=== PATIENT | male | born 1975 | race Caucasian/White ===

== ENCOUNTER 2017-09-26 07:39 | Emergency (ER) | payer OTHER, BC ==
[2017-09-26 07:44] VITALS: BMI 34.2
--- NOTE | 2017-09-26 08:12 | PDOC ---
History of Present Illness - General Chief Complaint: Injury Stated Complaint: INJURY Time Seen by Provider: 09/26/17 08:10 - History of Present Illness Initial Comments: 09/26/17 08:27 42 yo M with no significant pmh who presents with distal left 4th finger amputation. Patient reports increased bleeding from left distal 4th digit following injury. 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 Shortly after patient had finger reattached at [facility] by unknown surgeon. Patient states that procedure lasted 4 hours and ended at 2:30 PM. Patient reports nail bed avulsion and 16 sutures applied. Finger was dressed and splinted at [facility]. Denies fevers/chills, N/V, chest pain SOB, night sweats, weakness. Patient given clindamycin and on Ibuprofen for pain control. Smokes 1 ppd for 20 + years. Past History - Past Medical History Allergies/Adverse Reactions: Allergies Allergy/AdvReac Type Severity Reaction Status Date / Time No Known Allergies Allergy Verified 09/26/17 07:44 Home Medications: Ambulatory Orders Hydrocodone/Acetaminophen [Vicodin 5-300 mg Tablet] 1 - 2 tab PO TID PRN #50 tablet MDD 6 03/26/16 Oxycodone HCl/Acetaminophen [Percocet 5-325 mg Tablet] 1 tab PO Q6H #20 tablet MDD 3 tab 09/26/17 Anemia: No Asthma: No Cancer: No Cardiac Disorders: No CVA: No COPD: No CHF: No Dementia: No Diabetes: No GI Disorders: No Disorders: No HTN: No Hypercholesterolemia: No Liver Disease: No Seizures: No Thyroid Disease: No - Suicide/Smoking/Psychosocial Hx Smoking Status: Yes Smoking History: Current every day smoker Number of Cigarettes Smoked Daily: 20 Cigars Per Day: 5 Information on smoking cessation initiated: Yes 'Breaking Loose' booklet given: 09/26/17 Hx Alcohol Use: No Drug/Substance Use Hx: No Substance Use Type: None Review of Systems - Review of Systems Comments:: 09/26/17 08:12 GENERAL/CONSTITUTIONAL: No fever or chills. No weakness. HEAD, EYES, EARS, NOSE AND THROAT: No change in vision. No ear pain or discharge. No sore throat.- CARDIOVASCULAR: No chest pain or shortness of breath RESPIRATORY: No cough, wheezing, or hemoptysis. GASTROINTESTINAL: No nausea, vomiting, diarrhea or constipation. GENITOURINARY: No dysuria, frequency, or change in urination. MUSCULOSKELETAL: + Left 4th digit injury. No joint or muscle swelling or pain. No neck or back pain. SKIN: No rash NEUROLOGIC: No headache, vertigo, loss of consciousness, or change in strength/ sensation. ENDOCRINE: No increased thirst. No abnormal weight change HEMATOLOGIC/LYMPHATIC: No anemia, easy bleeding, or history of blood clots. ALLERGIC/IMMUNOLOGIC: No hives or skin allergy. *Physical Exam - Vital Signs Last Vital Signs Temp Pulse Resp BP Pulse Ox 97.6 F 112 H 20 138/76 97 09/26/17 07:40 09/26/17 07:40 09/26/17 07:40 09/26/17 07:40 09/26/17 07:40 - Physical Exam Comments: 09/26/17 08:12 GENERAL: Awake, alert, and fully oriented, in no acute distress HEAD: No signs of trauma, normocephalic, atraumatic EYES: PERRLA, EOMI, sclera anicteric, conjunctiva clear ENT: Hearing grossly normal, nares patent, oropharynx clear without exudates. Moist mucosa NECK: Normal ROM, supple, no lymphadenopathy, JVD, or masses LUNGS: No distress, speaks full sentences, clear to auscultation bilaterally HEART: Regular rate and rhythm, normal S1 and S2, no murmurs, rubs or gallops, peripheral pulses normal and equal bilaterally. EXTREMITIES : Normal inspection, Normal range of motion, no edema. No clubbing or cyanosis. Left Hand: + Flexion and extension of left 4 th digit at PCP, and MCP. [address] at DIP of 4th digit. Intact pain and temperature to finger below suture line. No active signs of bleeding or foreign body. Nail avulsed. Absent signs of oozing, pus, discharge. surgery site is c/d/i. SKIN: Warm, Dry, normal turgor, no rashes or lesions noted. ED Treatment Course - LABORATORY CBC & Chemistry Diagram: 09/26/17 09:30 09/26/17 09:30 Medical Decision Making - Medical Decision Making 09/26/17 08:54 42 yo M with h/o R scaphoid fracture who presents with distal left 4th finger amputation. Patient reports increased bleeding from left distal 4th digit following injury. 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 Shortly after patient had finger reattached at [facility] by unknown surgeon. Patient states that procedure lasted 4 hours and ended at 2:30 PM. Patient reports nail bed avulsion and 16 sutures applied. Finger was dressed and splinted at [facility]. Denies fevers/chills, N/V, chest pain SOB, night sweats, weakness. Patient given Keflex and on Ibuprofen for pain control. Left Hand: + Flexion and extension of left 4 th digit at PCP, and MCP. [address] at DIP of 4th digit. Intact pain and temperature to finger below suture line. Low suspicion of underlying soft tissue infection with absent signs of overlying cellulitis, gangrene, arterial insufficiency, or compartment syndrome. ED Course: Hand Left RAD Consulted Dr. Weiner Hand plastic surgeon director of diversity and inclusion. Tylenol 1000 mg, Naproxen 500 mg 09/26/17 09:16 Dr. Weiner to come to ED. 09/26/17 09:38 CBC, CMP, NS 1 L 09/26/17 11:10 Dr. Weiner splinted fingered and advised patient to continue Keflex and follow up with him in 3 days (09/29). CBC/CMP: Unremarkable LEFT HAND RAD: Left 4th digit tuft fracture. Patient stable for d/c with return precautions. *DC/Admit/Observation/Transfer Diagnosis at time of Disposition: Finger amputation, no complication - Discharge Dispostion Disposition: HOME Condition at time of disposition: Stable Admit: No - Referrals Referrals: STAFF,NOT ON [Primary Care Provider] - - Patient Instructions Printed Discharge Instructions: DI for Traumatic Amputation Additional Instructions: Please return to the emergency department with any new or worsening symptoms or concerns. Please continue to taker keflex as prescribed. Take percocet PRN for pain control. Avoid contact to involved finger. - Post Discharge Activity - Attestations Physician Attestion: 09/26/17 11:13 I attest to the information provided in this note.
--- NOTE | 2017-09-26 08:36 | PDOC ---
Attending Attestation - Resident Resident Name: Rolando Magana - ED Attending Attestation I have performed the following: I have examined & evaluated the patient, The case was reviewed & discussed with the resident, I agree w/resident's findings & plan, Exceptions are as noted - HPI HPI: 09/26/17 08:29 42yo M no PMH p/w L 4th finger injury. Pt had partial amputation while working 4 days ago. Pt states it was reattached at [place] by hand surgeon. He was discharged on Clindamycin which he has been compliant with. He reports he presents today due to increased bleeding. Pt was told there was a good chance his finger would no revascularize and he is concerned the bleeding is a sign of this. Denies fevers, chills, discharge, cp, sob, headaches, focal weakness or numbness - Physicial Exam PE: 09/26/17 09:36 agree with resident exam - Medical Decision Making 09/26/17 09:36 42yo M p/w L 4th finger injury that he was concerned was not revascularizing. It is unclear currently what the status of her finger is as the injury is recent , however, the patient has normal sensation in the distal fingertip and normal movement. Dr. Weiner has been consulted from the hand service, in the meantime, will obtain labs, XR, and pain management. Heart Score/ECG Review #1 09/26/17 10:26 Twelve-lead EKG was performed and reviewed by me. Normal sinus rhythm, rate 92. Normal axis and intervals. No ST elevations.
[2017-09-26] MEDS ORDERED: ACETAMINOPHEN 500 MG TABLET (FP) PO ONE (09:03)
[2017-09-26] MEDS ORDERED: NAPROXEN 500 MG TABLET (FP) PO ONE (09:03)
[2017-09-26] MEDS ORDERED: NAPROXEN 500 MG TABLET (FP) ONE (09:14)
[2017-09-26] MEDS ORDERED: ACETAMINOPHEN 325 MG TABLET (FP) ONE (09:14)
[2017-09-26] MEDS ORDERED: SODIUM CHLORIDE 1,000 ML IV STA (09:37)
[2017-09-26 10:09] LABS: BASOPHIL 0.5 % (0-2.0); EOSINOPHIL 1.2 % (0-4.5); MCH 26.1 pg (25.7-33.7); MCHC 32.1 g/dl (32.0-35.9); MEAN CELL VOLUME 81.5 fl (80-96); MEAN PLT VOLUME 8.5 fl (7.5-11.1); NEUTROPHILS 65.7 % (42.8-82.8); PLATELET COUNT 221 K/MM3 (134-434); RDW 15.1 % (11.9-15.9); WHITE BLOOD COUNT 8.9 K/mm3 (4.0-10.0)
[2017-09-26 10:44] LABS: ALBUMIN 4.4 g/dl (3.4-5.0); ALK PHOS 96 U/L (45-117); ANION GAP 8 (8-16); BILIRUBIN,TOTAL 0.6 mg/dL (0.2-1.0); CALCIUM 8.8 mg/dL (8.5-10.1); CO2 25 mmol/L (21-32); CREATININE 0.8 mg/dL (0.7-1.3); GLUCOSE,RANDOM 93 mg/dL (74-106); SGOT/AST 21 U/L (15-37); SGPT/ALT 31 U/L (12-78); TOT PROT 7.3 g/dl (6.4-8.2)
[2017-09-26] MEDS ORDERED: BACITRACIN 0.9 GM PACKET ONE (10:52)
--- NOTE | 2017-09-26 11:21 | CONSULT ---
Consult Consult Specialty:: hand surgery Referred by:: [facility] - ED Reason for Consultation:: left ring finger near amputation at work - History of Present Illness Chief Complaint: left ring finger bleeding repair site History of Present Illness: 42yo RHD male PMH Chronic back pain with buldging discs on opiate therapy, presents two days after sustaining a traumatic open tuft fracture of the left ring finger in a chain at work. 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 He was seen at [place] and had a laceration repair. He presented to the ED reporting significant blood loss from the repair site soaking his bandage and his clothing. He is a current smoker. he was taking antibiotics as prescribed. His pain at the site was tolerable. The bleeding was not active upon arrival. We were called to assess and treat. - History Source History Provided By: Patient Limitations to Obtaining History: No Limitations - Alcohol/Substance Use Hx Alcohol Use: No - Smoking History Smoking history: Current every day smoker Have you smoked in the past 12 months: Yes Aproximately how many cigarettes per day: 20 ("trying to quit") - Social History Place of : [facility] History of Recent Travel: Yes Home Medications - Allergies Allergies/Adverse Reactions: Allergies Allergy/AdvReac Type Severity Reaction Status Date / Time No Known Allergies Allergy Verified 09/26/17 07:44 - Home Medications Home Medications: Ambulatory Orders Hydrocodone/Acetaminophen [Vicodin 5-300 mg Tablet] 1 - 2 tab PO TID PRN #50 tablet MDD 6 03/26/16 Oxycodone HCl/Acetaminophen [Percocet 5-325 mg Tablet] 1 tab PO Q6H #20 tablet MDD 3 tab 09/26/17 Review of Systems - Review of Systems Constitutional: denies: Chills, Fever Eyes: denies: Blurred Vision, Recent Change in Vision HENT: denies: Difficult Swallowing, Throat Pain Neck: reports: Pain on Movement (chronic neck and back pain), Stiffness Respiratory: denies: Cough, SOB Gastrointestinal: denies: Abdominal Pain, Constipation, Diarrhea Genitourinary: denies: Burning, Discharge Musculoskeletal: reports: Back Pain (back pain with buldging disks on opiate therapy) Integumentary: denies: Lesions, Rash Neurological: denies: Change in LOC, Seizure, Tremors Endocrine: denies: Unexplained Weight Gain, Unexplained Weight Loss Hematology/Lymphatic: denies: Easily Bruised, Excessive Bleeding Psychiatric: denies: Anxiety, Depression Physical Exam Vital Signs: Vital Signs Temperature 97.6 F 09/26/17 07:40 Pulse Rate 112 H 09/26/17 07:40 Respiratory Rate 20 09/26/17 07:40 Blood Pressure 138/76 09/26/17 07:40 O2 Sat by Pulse Oximetry (%) 97 09/26/17 07:40 Vital Signs Period Temp Pulse Resp BP Sys/Shaw Pulse Ox Last 24 Hr 97.6 F 112 20 138/76 97 Constitutional: Yes: No Distress, Calm, Other (muscular) Eyes: Yes: Conjunctiva Clear, EOM Intact HENT: Yes: Atraumatic, Normocephalic Neck: Yes: Supple, Trachea Midline Cardiovascular: Yes: Regular Rate and Rhythm, S1, S2 Respiratory: Yes: Regular, CTA Bilaterally Gastrointestinal: Yes: Normal Bowel Sounds, Soft ...Rectal Exam: Yes: Deferred Renal/: No: CVA Tenderness - Left, CVA Tenderness - Right Musculoskeletal: Yes: Back Pain, Joint Stiffness Extremities: No: Cool, Cyanosis Edema: No Peripheral Pulses WNL: Yes Wound/Incision: Yes: Clean/Dry, Well Approximated, Sutures Intact (proline of nylon interrupted suture line intatct through the nailbed and cutical on to gaborus skin nail plate avulsed.), Bleeding (scant bloody effluent from the site ) Neurological: Yes: Alert, Oriented Psychiatric: Yes: Alert, Oriented Labs: CBC, BMP 09/26/17 09:30 09/26/17 09:30 Imaging - Results X-ray: Report Reviewed (left ring finger tuft fracture), Image Reviewed Problem List - Problems (1) Open fracture of tuft of distal phalanx of finger Assessment/Plan: 42 you RHD male with bleeding from left ring finger open tuft fracture with nail plate avulsion and nailbed laceration s/p repair 2 days ago at [place]. Left hand was cleaned bandage reapplied (bacitracin, xeroform, and gauze) left ulnar gutter splint applied He expressed his desire to follow-up with me because we are closer to home an information was provided Follow-up 09/29/2017 continue antibiotic - keflex adequate analgesia Code(s): S62.639B - DISP FX OF DISTAL PHALANX OF UNSP FINGER, INIT FOR OPN FX (2) Traumatic avulsion of nail plate of finger Code(s): S61.309A - UNSP OPEN WOUND OF UNSP FINGER W DAMAGE TO NAIL, INIT ENCNTR Qualifiers: Encounter type: subsequent encounter Qualified Code(s): S61.309D - Unspecified open wound of unspecified finger with damage to nail, subsequent encounter (3) Nailbed laceration, finger Code(s): S61.319A - LACERATION W/O FB OF UNSP FINGER W DAMAGE TO NAIL, INIT Qualifiers: Encounter type: subsequent encounter Qualified Code(s): S61.319D - Laceration without foreign body of unspecified finger with damage to nail, subsequent encounter (4) Bleeding from finger Code(s): R58 - HEMORRHAGE, NOT ELSEWHERE CLASSIFIED (5) Chronic back pain greater than 3 months duration Code(s): M54.9 - DORSALGIA, UNSPECIFIED; G89.29 - OTHER CHRONIC PAIN (6) Smoker Code(s): F17.200 - NICOTINE DEPENDENCE, UNSPECIFIED, UNCOMPLICATED
[2017-09-26 11:39] VITALS: BP 130/78; PULSE 71; TEMP 98.6
== END 2017-09-26 11:37 | disposition home or self-care (01) ==
LOC: JER 07:39
DX: J45.901 Unspecified asthma with (acute) exacerbation (principal)
CPT/HCPCS: 36415; 73130-TC-LT; 80053; 85025; 99282-25